=== PATIENT | female | born 1955 | race Caucasian/White ===

== ENCOUNTER 2021-01-25 15:08 | Emergency (ER) | payer MEDICARE, OTHER ==
--- NOTE | 2021-01-25 17:41 | EDM.PDOC ---
ED HPI GENERAL MEDICAL PROBLEM - General Chief Complaint: Lower Extremity Injury/Pain Stated Complaint: L LEG MASSl Time Seen by Provider: 01/25/21 15:27 Source of Information: Reports: Patient History Limitations: Reports: No Limitations - History of Present Illness INITIAL COMMENTS - FREE TEXT/NARRATIVE: HISTORY AND PHYSICAL: History of present illness: Patient is a 65-year-old female who presents emergency department secondary to a 12-hour history of mass like structure behind her left knee. Patient reports that she just completed a long road trip and was lying down and felt behind her leg and noticed that there was a non tender mass area to the back of her knee today. Patient was concerned for a blood clot since she just completed a long car ride. Patient reports that she has had no trauma to that limb that the swollen area does not hurt. Patient denies fever, chills, chest pain, shortness of breath, or cough. Denies headache, neck stiff ness, change in vision, syncope, or near syncope. Denies nausea, vomiting, abdominal pain, diarrhea, constipation, or dysuria. Has not noted any blood in urine or stool. Patient has been eating and drinking appropriately. Review of systems: As per history of present illness and below otherwise all systems reviewed and negative. Past medical history: As per history of present illness and as reviewed below otherwise noncontributory. Surgical history: As per history of present illness and as reviewed below otherwise noncontributory. Social history: See social history for further information Family history: As per history of present illness and as reviewed below otherwise noncontributory. Physical exam: General: Patient is alert, oriented, and in no acute distress. Patient sitting comfortably on exam table. Patient's vitals are stable and reviewed by me. HEENT: Atraumatic, normocephalic, pupils equal and reactive bilaterally, negative for conjunctival pallor or scleral icterus, mucous membranes moist, TMs normal bilaterally, throat clear, neck supple, nontender, trachea midline. No drooling or trismus noted. No meningeal signs. No hot potato voice noted. Lungs: Clear to auscultation, breath sounds equal bilaterally, chest nontender. Heart: S1S2, regular rate and rhythm without overt murmur Abdomen: Soft, nondistended, nontender. Negative for masses or hepatosplenomegaly. Negative for costovertebral tenderness. Pelvis: Stable nontender. Genitourinary: Deferred. Rectal: Deferred. Skin: Intact, warm, dry. No lesions or rashes noted. Extremities: There is an 3 x 3 cm, mobile, fluctuant mass in the popliteal fossa of the left leg, no erythema overlying the edematous area, the mass is the same temperature as the surrounding tissue. Non tender. Patient has full passive and active range of motion and is neurovascularly intact in the left leg. Ligamentous exam negative, no joint effusion noted. Homans negative. Otherwise atraumatic, negative for cords or calf pain. Neurovascular unremarkable. Neuro: Awake, alert, oriented. Cranial nerves II through XII unremarkable. Cerebellum unremarkable. Motor and sensory unremarkable throughout. Exam nonfocal. Notes: Discussed with patient the signs and symptoms that would prompt return to the emergency department. Discussed with patient the importance of follow-up with primary care. Voices understanding and is agreeable to plan of care. Denies any further questions or concerns at this time. Diagnostics: Venous Doppler ultrasound Therapeutics: None Prescription: None Impression: Munroe's cyst, left Plan: 1. Follow-up with a primary care provider as discussed. Return to the ED as needed and as discussed. Definitive disposition and diagnosis as appropriate pending reevaluation and review of above. - Related Data Allergies Allergy/AdvReac Type Severity Reaction Status Date / Time iodine Allergy Swelling Verified 01/25/21 16:20 Sulfa (Sulfonamide Allergy Swelling Verified 01/25/21 16:20 Antibiotics) Home Meds: Home Meds Gabapentin [Neurontin] 01/25/21 [History] Omeprazole 01/25/21 [History] Venlafaxine [Effexor XR] 01/25/21 [History] atorvaSTATin [Lipitor] 01/25/21 [History] busPIRone [Buspar] 01/25/21 [History] lamoTRIgine [Lamictal] 01/25/21 [History] Past Medical History Cardiovascular History: Reports: High Cholesterol - Infectious Disease History Infectious Disease History: Reports: None Social & Family History - Tobacco Use Tobacco Use Status *Q: Never Tobacco User - Caffeine Use Caffeine Use: Reports: None - Recreational Drug Use Recreational Drug Use: No Review of Systems - Review of Systems Review Of Systems: Comprehensive ROS is negative, except as noted in HPI. ED EXAM, GENERAL - Physical Exam Exam: See Below (see dictation) Course - Vital Signs Last Recorded V/S: Last Vital Signs Temp 98.2 F 01/25/21 17:51 Pulse 84 01/25/21 17:51 Resp 18 01/25/21 17:51 BP 123/72 01/25/21 17:51 Pulse Ox 98 01/25/21 17:51 Departure - Departure Time of Disposition: 19:18 Disposition: Home, Self-Care 01 Clinical Impression: Munroe's cyst of knee Qualifiers: Laterality: left Qualified Code(s): M71.22 - Synovial cyst of popliteal space [Munroe], left knee - Discharge Information Referrals: PCP,Not In Area [Primary Care Provider] - Forms: ED Department Discharge Additional Instructions: The following information is given to patients seen in the emergency department who are being discharged to home. This information is to outline your options for follow-up care. We provide all patients seen in our emergency department with a follow-up referral. The need for follow-up, as well as the timing and circumstances, are variable depending upon the specifics of your emergency department visit. If you don't have a primary care physician on staff, we will provide you with a referral. We always advise you to contact your personal physician following an emergency department visit to inform them of the circumstance of the visit and for follow-up with them and/or the need for any referrals to a consulting specialist. The emergency department will also refer you to a specialist when appropriate. This referral assures that you have the opportunity for follow-up care with a specialist. All of these measure are taken in an effort to provide you with optimal care, which includes your follow-up. Under all circumstances we always encourage you to contact your private physician who remains a resource for coordinating your care. When calling for follow-up care, please make the office aware that this follow-up is from your recent emergency room visit. If for any reason you are refused follow-up, please contact the [facility] at and asked to speak to the emergency department charge nurse. [facility] [address] [place] [id number] [address] [place] [address] 1. Follow-up with a primary care provider as discussed. Return to the ED as needed and as discussed. Sepsis Event Note (ED) - Evaluation Sepsis Screening Result: No Definite Risk - Focused Exam Vital Signs: Vital Signs Temp Pulse Resp BP Pulse Ox 01/25/21 17:51 98.2 F 84 18 123/72 98 01/25/21 16:21 97 F 76 16 132/70 96
--- NOTE | 2021-01-25 19:32 | US ---
INDICATION: Left leg pain TECHNIQUE: Ultrasound venous duplex lower left extremity. Compression venous exam was performed using monge-scale, color Doppler, and spectral Doppler analysis. COMPARISON: None available FINDINGS: The left common femoral, femoral, popliteal, posterior tibial, and peroneal veins are fully compressible and patent. Popliteal fossa contains anechoic/hypoechoic collection measuring 5.3 x 3.2 x 4.9 cm with apparent internal debris IMPRESSION: 1. Left lower extremity negative for DVT. 2. Approximate 5 cm popliteal cyst. Dictated by Moreno Whitaker MD @ 01/25/2021 7:31:13 PM Dictated by: Moreno Whitaker MD @ 01/25/2021 19:31:18 (Electronically Signed)
== END 2021-01-25 19:26 | disposition home or self-care (01) ==
LOC: MW.ED 15:08
DX: M71.22 Synovial cyst of popliteal space [Baker], left knee (principal); E78.00 Pure hypercholesterolemia, unspecified; Z79.899 Other long term (current) drug therapy; Z91.048 Other nonmedicinal substance allergy status; Z88.2 Allergy status to sulfonamides
CPT/HCPCS: 93971-26-LT; 93971-LT; 99283-25